=== PATIENT | male | born 1955 | race Caucasian/White ===

== ENCOUNTER 2023-05-12 00:35 | Inpatient (IN) | payer MEDICARE, OTHER ==
[~2023-05-12] VITALS: Ht 170.2 cm; Wt 102.1 kg
[2023-05-12 00:54] LABS: BASOPHILS # (AUTO) 0.1 K/UL (0.0-0.2); BASOPHILS % (AUTO) 0.7 % (0.0-2.0); EOSINOPHILS # (AUTO) 0.2 K/uL (0.0-0.7); EOSINOPHILS % (AUTO) 2.4 % (0.0-7.0); HEMATOCRIT 50.2 % (36.7-47.1); HEMOGLOBIN 17.3 g/dL (12.5-16.3); LYMPHOCYTES # (AUTO) 3.5 K/uL (0.8-4.8); LYMPHOCYTES % (AUTO) 35.1 % (20.5-51.5); MEAN CORPUSCULAR HEMOGLOBIN 31.7 uug (23.8-33.4); MEAN CORPUSCULAR HGB CONC 35 g/dL (32.5-36.3); MEAN CORPUSCULAR VOLUME 91.8 fL (73.0-96.2); MONOCYTES # (AUTO) 0.7 K/uL (0.1-1.30); MONOCYTES % (AUTO) 6.8 % (0.0-11.0); NEUTROPHILS # (AUTO) 5.5 K/uL (1.8-8.9); PLATELET COUNT (AUTO) 237 K/uL (152-348); RED BLOOD CELL COUNT(AUTO) 5.47 MIL/uL (4.06-5.63); RED CELL DISTRIBUTION WIDTH 13.1 % (12.1-16.2); WHITE BLOOD COUNT (AUTO) 10.1 K/uL (3.6-10.2)
[2023-05-12] MEDS ORDERED: ROSU20TA2 PO (00:55)
[2023-05-12] MEDS ORDERED: NEBI10TA2 PO (00:55)
[2023-05-12] MEDS ORDERED: SPIR25TA6 PO (00:55)
[2023-05-12] MEDS ORDERED: OMEP40CA21 PO (00:55)
[2023-05-12] MEDS ORDERED: CHLO25TA2 PO (00:55)
[2023-05-12] MEDS ORDERED: ASPI81TA31 PO (00:55)
[2023-05-12] MEDS ORDERED: AMLO10TA59 PO (00:55)
[2023-05-12] MEDS ORDERED: ISOS30TA86 PO (00:55)
[2023-05-12] MEDS ORDERED: OLME5TAB3 PO (00:55)
[2023-05-12 01:03] LABS: CALCIUM 10.4 mg/dL (8.5-10.1); CARBON DIOXIDE 26 mmol/L (21-32); CHLORIDE 106 mmol/L (98-107); CREATININE 1.4 mg/dL (0.6-1.3); GLUCOSE 106 mg/dL (74-106); SODIUM SERUM 144 mmol/L (136-145); UREA NITROGEN, BLOOD 25 mg/dL (7-18)
[2023-05-12] MEDS ORDERED: NITROGLYCERIN OINT 1 GM PACKET TP ONE (01:03)
[2023-05-12] MEDS ORDERED: NITROGLYCERIN 0.4 MG/TAB BOTTLE SL ONE (01:03)
[2023-05-12] MEDS: NITROGLYCERIN OINT 1 GM PACKET TP ONE (01:11)
[2023-05-12] MEDS: NITROGLYCERIN 0.4 MG/TAB BOTTLE SL ONE (01:11)
[2023-05-12 01:19] LABS: ALANINE AMINOTRANSFERASE 52 U/L (16-63); ALBUMIN 4.4 g/dL (3.4-5.0); ALKALINE PHOSPHATASE 78 U/L (50-136); ASPARTATE AMINOTRANSFERASE 15 U/L (15-37); BILIRUBIN,DIRECT 0.1 mg/dL (0.0-0.2); BILIRUBIN,TOTAL 0.4 mg/dL (0.2-1.0); NT-PRO BNP 207 pg/mL (0-125); TOTAL PROTEIN, SERUM 8.8 g/dL (6.4-8.2)
[2023-05-12] MEDS ORDERED: ONDANSETRON 4 MG/2 ML VIAL IV PRN (03:15)
[2023-05-12] MEDS ORDERED: ACETAMINOPHEN 325 MG TABLET PO PRN (03:15)
[2023-05-12] MEDS ORDERED: REMEDY ESSENTIAL ZINC PASTE 113 GM TP PRN (03:15)
[2023-05-12] MEDS ORDERED: MAGNESIUM HYDROXIDE 30 ML LIQUID UDC PO PRN (03:15)
[2023-05-12] MEDS ORDERED: MORPHINE SULFATE 2 MG/1 ML DISP.SYRIN IV PRN (03:15)
[2023-05-12] MEDS ORDERED: NITROGLYCERIN 0.4 MG/TAB BOTTLE SL PRN (03:15)
[2023-05-12] MEDS: ENOXAPARIN SODIUM 40 MG/0.4 ML DISP.SYRIN SQ SCH ×2 (04:15→20:46)
[2023-05-12] MEDS ORDERED: ENOXAPARIN SODIUM 40 MG/0.4 ML DISP.SYRIN SQ ONE (04:50)
[2023-05-12 06:54] LABS: BASOPHILS # (AUTO) 0.1 K/UL (0.0-0.2); BASOPHILS % (AUTO) 0.7 % (0.0-2.0); EOSINOPHILS # (AUTO) 0.2 K/uL (0.0-0.7); EOSINOPHILS % (AUTO) 2.6 % (0.0-7.0); HEMATOCRIT 43.5 % (36.7-47.1); HEMOGLOBIN 15.2 g/dL (12.5-16.3); LYMPHOCYTES # (AUTO) 3.1 K/uL (0.8-4.8); LYMPHOCYTES % (AUTO) 35.4 % (20.5-51.5); MEAN CORPUSCULAR HEMOGLOBIN 31.9 uug (23.8-33.4); MEAN CORPUSCULAR HGB CONC 35 g/dL (32.5-36.3); MEAN CORPUSCULAR VOLUME 91.5 fL (73.0-96.2); MONOCYTES # (AUTO) 0.6 K/uL (0.1-1.30); MONOCYTES % (AUTO) 6.5 % (0.0-11.0); NEUTROPHILS # (AUTO) 4.8 K/uL (1.8-8.9); NEUTROPHILS % (AUTO) 54.8 % (38.5-71.5); PLATELET COUNT (AUTO) 216 K/uL (152-348); RED BLOOD CELL COUNT(AUTO) 4.75 MIL/uL (4.06-5.63); RED CELL DISTRIBUTION WIDTH 13.3 % (12.1-16.2); WHITE BLOOD COUNT (AUTO) 8.7 K/uL (3.6-10.2)
[2023-05-12 06:58] LABS: CALCIUM 9.4 mg/dL (8.5-10.1); CREATININE 1.1 mg/dL (0.6-1.3); POTASSIUM 3.8 mmol/L (3.5-5.1)
[2023-05-12 06:59] LABS: DIFFERENTIAL COMMENT 1
[2023-05-12 07:11] LABS: MAGNESIUM 2.1 mg/dL (1.8-2.4); THYROID STIMULATING HORMONE 1.481 mIU/mL (0.358-3.740)
[2023-05-12] MEDS ORDERED: PANTOPRAZOLE SODIUM 40 MG TABLET.DR PO ONE (08:09)
[2023-05-12] MEDS ORDERED: MORPHINE SULFATE 4 MG/1 ML DISP.SYRIN IV PRN (08:15)
[2023-05-12] MEDS: PANTOPRAZOLE SODIUM 40 MG TABLET.DR PO SCH (08:16)
[2023-05-12] MEDS ORDERED: ASPIRIN 81 MG TAB.CHEW ONE (08:43)
[2023-05-12] MEDS ORDERED: AMLODIPINE 5 MG TABLET ONE (08:43)
[2023-05-12] MEDS: ASPIRIN 81 MG TAB.CHEW PO SCH (08:44)
[2023-05-12] MEDS: AMLODIPINE 10 MG TABLET PO SCH (08:45)
[2023-05-12] MEDS ORDERED: Medication Not On Formulary EA (Rosuvastatin Calcium (Crestor) 20 MG) PO SCH (09:00)
[2023-05-12] MEDS ORDERED: Medication Not On Formulary EA (Omeprazole 40 MG) PO SCH (09:00)
[2023-05-12 09:34] VITALS: BP 131/57; TEMP 98.2; O2SAT 98
[2023-05-12] MEDS: ISOSORBIDE MONONITRATE 30 MG TAB.SR.24H PO SCH (09:48)
[2023-05-12] MEDS: METOPROLOL TARTRATE 50 MG TABLET PO SCH (09:49)
[2023-05-12 15:54] VITALS: BP 117/63; TEMP 97.3; O2SAT 96
[2023-05-12 20:00] VITALS: BP 100/58; TEMP 97.9; O2SAT 96
[2023-05-12] MEDS: ATORVASTATIN 40 MG TABLET PO SCH (20:45)
[2023-05-13] VITALS: BP 107/66; TEMP 97.6; O2SAT 98
[2023-05-13 04:00] VITALS: BP 127/67; TEMP 97.7; O2SAT 94
[2023-05-13 07:53] LABS: BASOPHILS # (AUTO) 0.1 K/UL (0.0-0.2); BASOPHILS % (AUTO) 0.7 % (0.0-2.0); EOSINOPHILS # (AUTO) 0.2 K/uL (0.0-0.7); EOSINOPHILS % (AUTO) 2.9 % (0.0-7.0); HEMATOCRIT 46.8 % (36.7-47.1); HEMOGLOBIN 16.3 g/dL (12.5-16.3); LYMPHOCYTES # (AUTO) 2.6 K/uL (0.8-4.8); LYMPHOCYTES % (AUTO) 34.6 % (20.5-51.5); MEAN CORPUSCULAR HGB CONC 35 g/dL (32.5-36.3); MEAN CORPUSCULAR VOLUME 92.1 fL (73.0-96.2); MONOCYTES # (AUTO) 0.5 K/uL (0.1-1.30); MONOCYTES % (AUTO) 6.1 % (0.0-11.0); NEUTROPHILS # (AUTO) 4.2 K/uL (1.8-8.9); NEUTROPHILS % (AUTO) 55.7 % (38.5-71.5); PLATELET COUNT (AUTO) 220 K/uL (152-348); RED BLOOD CELL COUNT(AUTO) 5.08 MIL/uL (4.06-5.63); RED CELL DISTRIBUTION WIDTH 13.1 % (12.1-16.2); WHITE BLOOD COUNT (AUTO) 7.6 K/uL (3.6-10.2)
[2023-05-13 08:04] LABS: CREATININE 1.1 mg/dL (0.6-1.3); PHOSPHOROUS 2.9 mg/dL (2.5-4.9); POTASSIUM 4.3 mmol/L (3.5-5.1)
[2023-05-13 08:06] LABS: DIFFERENTIAL COMMENT 1
[2023-05-13 11:56] VITALS: BP 106/62; TEMP 98; O2SAT 96
== END 2023-05-13 13:00 | disposition home or self-care (01) | DRG 302 ==
LOC: ER 00:38 → TRANSITION 04:25 → TELE3 08:30
PROVIDERS: ADMIT Nurse Practitioner Acute Care; ATTEND Internal Medicine
DX: I25.110 Atherosclerotic heart disease of native coronary artery with unstable angina pectoris (principal); N17.0 Acute kidney failure with tubular necrosis; I50.32 Chronic diastolic (congestive) heart failure; E78.5 Hyperlipidemia, unspecified; Z95.5 Presence of coronary angioplasty implant and graft; I25.2 Old myocardial infarction; I16.0 Hypertensive urgency; E83.52 Hypercalcemia; I11.0 Hypertensive heart disease with heart failure; E66.9 Obesity, unspecified; Z68.35 Body mass index [BMI] 35.0-35.9, adult; R00.8 Other abnormalities of heart beat; Z90.49 Acquired absence of other specified parts of digestive tract; Z87.442 Personal history of urinary calculi; Z79.899 Other long term (current) drug therapy; Z79.82 Long term (current) use of aspirin
CPT/HCPCS: 36415; 71045; 83735; 84100; 84443; 84484; 85025; 93005; 93307; A4663; G0378; J1650